=== PATIENT | female | born 1950 | race Caucasian/White ===

== ENCOUNTER 2017-05-20 12:29 | Emergency (ER) | payer OTHER ==
[~2017-05-20] VITALS: Ht 167.6 cm; Wt 90.5 kg
[~2017-05-20 12:29] MED LIST: ALBU1AER INH; CLIN1CAP5 PO; DIFL150T PO; LEVA500T PO; LISI10TA PO; LOTR15T TOP; MEDR4PAK3 PO; TRAM50TA; ZITHTAB PO
[2017-05-20 12:51] VITALS: BP 189/96; PULSE 98; RESP 16; TEMP 98.6; O2SAT 98
[2017-05-20 12:56] VITALS: RESP 16; O2SAT 98
[2017-05-20] MEDS ORDERED: LISI20TA PO (12:59)
[2017-05-20] MEDS ORDERED: TRAM50TA PO (12:59)
[2017-05-20] MEDS ORDERED: SODIUM CHLORID 0.9% 500 ML INJ 500 ML IV ONE (13:00)
[2017-05-20] MEDS ORDERED: ASPIRIN 81 MG CHEW TAB PO ONE (13:00)
[2017-05-20] MEDS ORDERED: SODIUM CHLORIDE 0.9% FLUSH 10 ML FLUSH IVF PRN (13:00)
[2017-05-20] MEDS: NITROGLYCERIN 0.4 MG SL 25 TABS/BTL SL SCH ×3 (13:05→13:10)
[2017-05-20 13:10] LABS: BASOPHIL # 0.1 TH/MM3 (0-0.2); BASOPHIL % 0.9 % (0.0-2.0); EOSINOPHIL # 0.3 TH/MM3 (0-0.4); EOSINOPHIL % 3.4 % (0.0-4.0); HEMATOCRIT 39.2 % (35.0-46.0); HEMO FLAGS DIFF FINAL; LYMPH % 30.6 % (9.0-44.0); LYMPHOCYTE # 2.6 TH/MM3 (1.0-4.8); MEAN CELL VOLUME 84.4 FL (80.0-100.0); MEAN CORPUSCULAR HEMOGLOBIN 29.1 PG (27.0-34.0); MEAN CORPUSCULAR HGB CONC 34.4 % (32.0-36.0); MONO % 8.4 % (0.0-8.0); NEUT % 56.7 % (16.0-70.0); PLATELET COUNT 232 TH/MM3 (150-450); RED BLOOD COUNT 4.65 MIL/MM3 (4.00-5.30); RED CELL DISTRIBUTION WIDTH 13.5 % (11.6-17.2); WHITE BLOOD COUNT 8.7 TH/MM3 (4.0-11.0)
[2017-05-20 13:11] VITALS: BP 109/62; PULSE 88; RESP 16; O2SAT 97
[2017-05-20 13:18] LABS: CHLORIDE 105 MEQ/L (98-107); POTASSIUM 3.6 MEQ/L (3.5-5.1); SODIUM (NA) 140 MEQ/L (136-145)
[2017-05-20 13:22] LABS: ANION GAP 8 MEQ/L (5-15); BICARBONATE 27.4 MEQ/L (21.0-32.0)
[2017-05-20 13:23] LABS: BLOOD UREA NITROGEN 12 MG/DL (7-18)
[2017-05-20 13:25] LABS: ALT (GPT) 29 U/L (10-53); AST (GOT) 19 U/L (15-37); GLOMERULAR FILTRATION RATE 74 ML/MIN (>89)
[2017-05-20 13:27] LABS: TOTAL BILIRUBIN ADULT 0.3 MG/DL (0.2-1.0)
[2017-05-20 13:28] LABS: ALKALINE PHOSPHATASE 85 U/L (45-117)
[2017-05-20 13:30] LABS: CREATINE KINASE 72 U/L (26-192)
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
[2017-05-20 13:39] LABS: APTT (PATIENT) 23.6 SEC (24.3-30.1); INTERNATIONAL NORMALIZED RATIO 0.9 RATIO; PROTHROMBIN TIME - PATIENT 9.7 SEC (9.8-11.6)
--- NOTE | 2017-05-20 13:57 | RADRPT ---
EXAM DATE/TIME: 05/20/2017 13:16 [facility] COMPARISON: CHEST SINGLE AP, November 09, 2015, 6:13. INDICATIONS : Chest pain, short of breath. MEDICAL HISTORY : None. SURGICAL HISTORY : None. ENCOUNTER: Initial ACUITY: 1 day PAIN SCORE: 1/10 LOCATION: Bilateral chest FINDINGS: A single view of the chest demonstrates the lungs to be symmetrically aerated without evidence of mas s, infiltrate or effusion. The cardiomediastinal contours are unremarkable. Osseous structures are intact. CONCLUSION: No acute disease. No significant change has occurred. Vel Howard MD on May 20, 2017 at 13:55 Board Certified Radiologist. This report was verified electronically.
--- NOTE | 2017-05-20 14:13 | RADRPT ---
EXAM DATE/TIME: 05/20/2017 13:41 [facility] COMPARISON: No previous studies available for comparison. INDICATIONS : Bilateral leg swelling. MEDICAL HISTORY : Hypertension. Carcinoma, squamous cell. Chest pain. Chronic back pain. Depression. Anxiety. Anticoa gulant therapy, Aspirin. SURGICAL HISTORY : section. Bilateral YV-Plasty - bilateral implant. ENCOUNTER: Initial ACUITY: 1 day PAIN SCORE: 3/10 LOCATION: Bilateral leg. TECHNIQUE: Venous ultrasound of the left and right leg was performed from the inguinal ligament to the proximal calf. Real-time, color Doppler and spectral tracing, compression and augmentation techniques were us ed. FINDINGS: RIGHT LEG: There is normal compressibility of the deep venous system from the inguinal region to the proximal ca lf. No echogenic clot is seen in the lumen of the common femoral, femoral, popliteal, and posterior tibial veins. There is a normal response of the venous system to proximal and distal augmentation an d respiration. LEFT LEG: There is normal compressibility of the deep venous system from the inguinal region to the proximal ca lf. No echogenic clot is seen in the lumen of the common femoral, femoral, popliteal, and posterior tibial veins. There is a normal response of the venous system to proximal and distal augmentation an d respiration. CONCLUSION: Negative for deep venous thrombosis. Shiv Mata MD FACR on May 20, 2017 at 14:10 Board Certified Radiologist. This report was verified electronically.
[2017-05-20] MEDS ORDERED: IOHEXOL 350 MG/ML 10 ML VIAL (for RAD DIAG) IV ONE (14:47)
--- NOTE | 2017-05-20 14:52 | RADRPT ---
EXAM DATE/TIME: 05/20/2017 14:29 [facility] COMPARISON: No previous studies available for comparison. INDICATIONS : Chest pain. IV CONTRAST: 75 cc Omnipaque 350 (iohexol) IV RADIATION DOSE: 13.59 CTDIvol (mGy) MEDICAL HISTORY : Hypertension. SURGICAL HISTORY : section. ENCOUNTER: Initial ACUITY: 1 day PAIN SCALE: 2/10 LOCATION: chest TECHNIQUE: Volumetric scanning of the chest was performed using a pulmonary embolism protocol MIP images were re constructed. Using automated exposure control and adjustment of the mA and/or kV according to patien t size, radiation dose was kept as low as reasonably achievable to obtain optimal diagnostic quality images. DICOM format image data is available electronically for review and comparison. FINDINGS: PULMONARY ARTERIES: No filling defects are seen in the pulmonary arteries through the segmental level. LUNGS: There is no consolidation or pneumothorax . No concerning pulmonary nodule is visualized. PLEURAE: There is no pleural thickening or pleural effusion. MEDIASTINUM: There is good visualization of the great vessels of the middle mediastinum. No evidence of mediastin al or hilar adenopathy/mass. Mild aneurysmal the location of the ascending thoracic aorta with an AP diameter of 4.4 cm.MUSCULOSKELETAL: Within normal limits for patient age. MISCELLANEOUS: The visualized upper abdominal organs demonstrate no acute abnormality. CONCLUSION: 1. No evidence of pulmonary emboli 2. No acute pulmonary infiltrates 3. Mild aneurysmal dilatation ascending thoracic aorta at 4.4 cm. Vel Howard MD on May 20, 2017 at 14:48 Board Certified Radiologist. This report was verified electronically.
[2017-05-20 15:19] VITALS: BP 140/76
--- NOTE | 2017-05-21 18:23 | EKG ---
Date Performed: 05/20/2017 Time Performed: 12:33:15 PTAGE: 67 years EKG: Sinus rhythm POSSIBLE LEFT ATRIAL ENLARGEMENT BORDERLINE ECG PREVIOUS TRACING : 11/09/2015 05.53 Compared to prior tracing no significant change DOCTOR: Janny Prater Interpretating Date/Time 05/21/2017 18:22:08
== END 2017-05-20 15:20 | disposition left against medical advice (07) ==
LOC: PHED 12:29
DX: R07.9 Chest pain, unspecified (principal); I71.2 Thoracic aortic aneurysm, without rupture; R06.02 Shortness of breath; R11.0 Nausea; R94.31 Abnormal electrocardiogram [ECG] [EKG]; I10 Essential (primary) hypertension; Z79.82 Long term (current) use of aspirin; Z86.59 Personal history of other mental and behavioral disorders; Z86.79 Personal history of other diseases of the circulatory system; Z87.39 Personal history of other diseases of the musculoskeletal system and connective tissue; Z87.891 Personal history of nicotine dependence
CPT/HCPCS: 71010; 71275; 80053; 82550; 83690; 83735; 83880; 84484; 85025; 85379; 85610; 85730; 93005; 93970; 96360; 99285; J7040; Q9967

== ENCOUNTER 2018-07-06 12:15 | Observation (INO) ==
[2018-07-06] MEDS ORDERED: Morphine Inj 4 MG/ML Vial IV.PUSH ONE (13:10)
[2018-07-06 13:11] LABS: Baso % (Auto) 0.7 % (0.0-2.0); Eos # (Auto) 0.1 th/mm3 (0.0-0.4); Eos % (Auto) 1.5 % (0.0-4.0); Hematocrit 38.9 % (35.0-46.0); Hemoglobin 13.1 gm/dL (11.6-15.3); Lymph # (Auto) 1.7 th/mm3 (1.0-4.8); Lymph % (Auto) 25.2 % (9.0-44.0); Mean Corpuscular HGB Conc 33.7 % (32.0-36.0); Mean Corpuscular Hemoglobin 28.4 pg (27.0-34.0); Mean Corpuscular Volume 84.3 fL (80.0-100.0); Mean Platelet Volume 8.3 fL (7.0-11.0); Mono # (Auto) 0.5 th/mm3 (0.0-0.9); Mono % (Auto) 8.1 % (0.0-8.0); Neut # (Auto) 4.5 th/mm3 (1.8-7.7); Neut % (Auto) 64.5 % (16.0-70.0); Platelet Count 231 th/mm3 (150-450); Red Blood Count 4.62 mil/mm3 (4.00-5.30); Red Cell Distribution Width 13.9 % (11.6-17.2); White Blood Count 6.8 th/mm3 (4.0-11.0)
[2018-07-06 13:18] LABS: Chloride 104 meq/L (98-107); Potassium 3.7 meq/L (3.5-5.1); Sodium 141 meq/L (136-145)
--- NOTE | 2018-07-06 13:19 | ED ---
HPI General Chief Complaint: Chest Pain Stated Complaint: Chest pain Time Seen by Provider: 07/06/18 12:40 Source: patient and old records reviewed Mode of arrival: ambulatory Limitations: no limitations History of Present Illness MD complaint: chest pain Complete Quality Measures for STEMI Alert Patients STEMI Alert: No Onset (ago): day(s) (3-7) Duration: constant and progressively worsening (worse today) Pain location: substernal Quality: heaviness Pain radiation: none Relieving factors: nothing Exacerbating factors: nothing Context: other (This is this patient's third visit here this week. She is extremely concerned about her blood pressure.) Associated symptoms: dyspnea and other (dizziness) Treatments prior to arrival chest pain: none Related Data Home Medications Medication Instructions Recorded Confirmed lisinopril 40 mg PO DAILY 06/30/18 07/06/18 tramadol 50 mg PO BID 06/30/18 07/06/18 diltiazem HCl 120 mg PO Q12H 07/06/18 07/06/18 Previous Rx's Medication Instructions Recorded clonidine HCl 0.1 mg PO ONCE PRN #10 tab 06/30/18 Allergies Allergy/AdvReac Type Severity Reaction Status Date / Time penicillin G Allergy Severe ANAPHALAXIS Verified 07/06/18 12:48 amoxicillin Allergy Unknown CRAMPMING Verified 07/06/18 12:48 nitrofurantoin Allergy Unknown HIVES Verified 07/06/18 12:48 Sulfa (Sulfonamide AdvReac Unknown UNK Verified 07/06/18 12:48 Antibiotics) Review of Systems ROS: all other systems reviewed are negative [facility] Medical History Medical History Hypertension (Acute) Surgical History Surgical History Hx of bladder repair surgery (Acute) Hx of section (Acute) Social History Social History Substance History: No History of Abuse Second Hand Smoke Exposure: No Smoking Status: Former smoker Tobacco Type: Cigarettes How Often Do You Have a Drink Containing Alcohol: Never Recent Travel in [facility] within the Last 8 Weeks: No Recent Out of Country Travel within the Last 8 Weeks: No Immunization History Tetanus Immunization: >5 Years Hx Influenza Vaccine This Season: No Exam Const General: cooperative, healthy appearing and comfortable Orientation: alert, awake and oriented x3 HENMT Head: normal to inspection, normocephalic and atraumatic Eyes General: appearance normal, both eyes and all related structures Conjunctivae: conjunctivae normal Sclera: sclerae normal EOM: EOM intact bilaterally Neck Neck: normal visual inspection and full ROM Chest Chest: normal inspection of the chest Resp Effort & Inspection: normal respiratory effort and able to speak in complete sentences Auscultation: clear to auscultation bilaterally Cardio Rate: regular rate Rhythm: regular rhythm Heart Sounds: S1 normal and S2 normal GI Inspection: normal to inspection Palpation: soft Back/Spine/Pelvis Cervical Spine: cervical ROM normal Thoracic/Lumbar Spine: thoraco-lumbar ROM normal Skin General: no rashes or lesions noted, turgor normal and dry skin Neuro General: alert, awake, oriented x3, moves all extremities and CN's II-XI intact bilaterally Extrem General: normal to inspection, full ROM and no pedal edema Psych Appearance: grossly normal Mental Status: mental status grossly normal Speech and Movement: speech and movement normal Mood: congruent mood Affect: normal affect Attitude: cooperative Thought Process: normal Thought Content: normal Judgment: judgment good Course Hospital Course: Her blood pressure did come down with Nitropaste Consultations Consultation #1: Dr. Casanova will admit to the chest pain center Time: 15:26 Initial Documented Vital Signs Temperature 98.6 F 07/06/18 12:51 Pulse Rate 71 07/06/18 12:51 Respiratory Rate 16 07/06/18 12:51 Blood Pressure 226/96 H 07/06/18 12:51 Pulse Oximetry 95 07/06/18 12:51 Last Documented Vital Signs Temperature 98.6 F 07/06/18 12:51 Pulse Rate 65 07/06/18 14:36 Respiratory Rate 16 07/06/18 14:36 Blood Pressure 195/99 H 07/06/18 14:36 Pulse Oximetry 97 07/06/18 14:36 Critical Care Time Critical Care Time: Yes Total Critical Care Time: 30 Attestation: Time to perform other separately billable procedures was not included in the critical care time. My time did not include minutes spent treating any other patients simultaneously or on activities that did not directly contribute to the patient's treatment. The services I provided to this patient were to treat and/or prevent clinically significant deterioration due to chest pain, rule out ACS I provided critical care services requiring my management, as noted below: Chart data review, documentation time, medication orders and management, vital sign assessments/reviewing monitor data, ordering and reviewing lab tests, ordering and interpreting/reviewing x-rays and diagnostic studies, care of the patient and discussion of the patient with the admitting physicians Medical Decision Making MDM Narrative Medical decision making narrative: This patient presents with the chief complaint of chest pain. She states that it has been ongoing for at least the past 3 days. She has been seen here on 06/30 and 07/02 with a complaint of hypertension. There was no mention of chest pain on those previous visits. She has been given aspirin, Nitropaste and morphine in the emergency department. Medical Screen Exam Complete: Yes Emergency Medical Condition: Yes Differential Diagnosis Differential Diagnosis: Differential diagnosis of chest pain includes but is not limited to musculoskeletal pain, pulmonary embolism, acute coronary syndrome , pneumonia, pleurisy Medical Records Medical records reviewed: Yes I reviewed the patient's medical records. Lab Data Lab results reviewed: Yes I reviewed the patient's lab results. Result diagrams: 07/06/18 13:00 07/06/18 13:00 Lab Results 07/06/18 07/06/18 Range/Units 13:00 13:00 CBC w Diff Auto diff final WBC 6.8 (4.0-11.0) th/mm3 RBC 4.62 (4.00-5.30) mil/mm3 Hgb 13.1 (11.6-15.3) gm/dL Hct 38.9 (35.0-46.0) % MCV 84.3 (80.0-100.0) fL MCH 28.4 (27.0-34.0) pg MCHC 33.7 (32.0-36.0) % RDW 13.9 (11.6-17.2) % Plt Count 231 (150-450) th/mm3 MPV 8.3 (7.0-11.0) fL Neut % (Auto) 64.5 (16.0-70.0) % Lymph % (Auto) 25.2 (9.0-44.0) % [place]ama % (Auto) 8.1 H (0.0-8.0) % Eos % (Auto) 1.5 (0.0-4.0) % Baso % (Auto) 0.7 (0.0-2.0) % Neut # (Auto) 4.5 (1.8-7.7) th/mm3 Lymph # (Auto) 1.7 (1.0-4.8) th/mm3 [place] # (Auto) 0.5 (0.0-0.9) th/mm3 Eos # (Auto) 0.1 (0.0-0.4) th/mm3 Baso # (Auto) 0.0 (0.0-0.2) th/mm3 WBC Differential . Differential Comment . Sodium 141 (136-145) meq/L Potassium 3.7 (3.5-5.1) meq/L Chloride 104 (98-107) meq/L Carbon Dioxide 27.4 (21.0-32.0) meq/L Anion Gap 10 (5-15) meq/L BUN 9 (7-18) mg/dL Creatinine 0.70 (0.50-1.00) mg/dL Estimated GFR 83 L (>89) mL/min Random Glucose 98 (74-106) mg/dL Calcium 8.8 (8.5-10.1) mg/dL Troponin I Less than 0.02 L (0.02-0.05) ng/mL Imaging Data Radiologist's impression: Chest X-Ray 07/06/18 12:43 CONCLUSION: 1. No acute abnormality or significant interval change. ECG Data EKG Prior to Arrival: No Attestation: I personally reviewed and interpreted this ECG as follows: (EKG shows a sinus rhythm with 69. She has inverted T waves in her inferior leads and in V3. No acute ST segment elevation or depression.) Prior ECG tracings: available for review (unchanged) Discharge Plan Discharge Disposition Patient Disposition: 30 Still Patient Discharge Details Diagnosis: Chest pain Physicians Team ED Provider: Zakiya Rodriguez Primary Care Provider: Federico Vargas Rxs /Orders / Referrals /Forms Prescriptions: No Action diltiazem HCl 120 mg Capsule,Extended Release 12 Hr 120 mg PO Q12H RF: 0 lisinopril 40 mg Tablet 40 mg PO DAILY RF: 0 tramadol 50 mg Tablet 50 mg PO BID RF: 0 clonidine HCl 0.1 mg tablet 0.1 mg PO ONCE PRN (Reason: hypertensive emergency) Qty: 10 RF: 0 Discharge Instructions Patient Printed Instructions: Chest Pain (ED) Discharge Interventions Interventions: Vital Signs Last Done: 07/06/18 14:36 Status ED Status: Pending Admission
[2018-07-06 13:22] LABS: Anion Gap 10 meq/L (5-15); Blood Urea Nitrogen 9 mg/dL (7-18); Calcium 8.8 mg/dL (8.5-10.1); Carbon Dioxide 27.4 meq/L (21.0-32.0); Glucose,Random 98 mg/dL (74-106)
[2018-07-06 13:26] LABS: Glomerular Filtration Rate 83 mL/min (>89)
--- NOTE | 2018-07-06 14:03 | XR ---
EXAM DATE: 07/06/2018 1:09 PM EDT AGE/SEX: 68 years / Female INDICATIONS: Short of breath, chest pessure. CLINICAL DATA: This is the patient's initial encounter. Patient reports that signs and symptoms have been present for 1 day and indicates a pain score of 4/10. MEDICAL/SURGICAL HISTORY: Hypertension. section. Bladder surgery. COMPARISON: [facility], CHEST 2V PA&LAT, 07/02/2018. . FINDINGS: No new focal pleural or parenchymal opacities. The cardiomediastinal contours are unremarkable. Osse ous structures are intact. CONCLUSION: 1. No acute abnormality or significant interval change. Electronically signed by: Frederick Parada MD 07/06/2018 2:01 PM EDT
--- NOTE | 2018-07-06 16:10 | P.HP ---
History of Present Illness Primary Care Physician: Federico Vargas Chief Complaint: Chest pain and elevated BP History of Present Illness: This is a 68-year-old female patient with a known medical history of hypertension and chronic back pain he presented to the ED with complaints of chest pain. Patient states that over the past 3 days she has been experiencing midsternal chest pain that is characterized as "someone sitting on his chest", squeezing and dull in nature. She states that the pain is intermittent coming and going. She states that the pain is worse when her blood pressure readings are high, she states that the pain has improved with rest. She does take tramadol at home which has improved the pain slightly. She denies any associated nausea, vomiting or diaphoresis with the pain. She does admit to associated shortness of breath intermittently. Patient does admit to noncompliance with her prescribed medications for blood pressure, she states that her PCP had recently prescribed her hydralazine in addition to her lisinopril for which she has been noncompliant. She states that she does not feel she wants to be on medication and does not want to accept this fact that she needs medication to live. She does admit to history of back pain, she states she reinjured her back a couple weeks ago. She does follow with [facility], does admit to associated left arm numbness and some left leg numbness that intermittently comes and goes. She does state that she had a episode of chest pain 2 years ago, she relates this to an anxiety attack. At that time patient did undergo a cardiac catheterization which was reportedly negative. She does not follow with a credit risk analyst. She does admit to taking her lisinopril this morning. She has not started the prescribed Cardizem nor hydralazine. She does admit to smoking half pack per day cigarettes for many years. Father had an [place] at the age of 4343 years old. - Diagnosis (1) Chest pain (2) Hypertension Review of Systems All other systems reviewed negative except as stated in HPI [facility] - History History Provided By: Patient - Medical History Medical History: Medical History (Last Reviewed 07/06/18 @ 13:13 by Zakiya Rodriguez) Hypertension (Acute) - Surgical History Surgical History: Surgical History (Last Updated 07/06/18 @ 12:52 by Sasha Mitchell RN) Hx of bladder repair surgery (Acute) Hx of section (Acute) - Family History Family History: Family History (Last Updated 07/06/18 @ 16:24 by Madelin Leyva) Father Cardiovascular disease - Tobacco History Second Hand Smoke Exposure: No Tobacco Use In Past 30 Days: Yes Smoking Status: Current every day smoker Tobacco Type: Cigarettes Packs Per Day: 0.5 - Alcohol History How Often Do You Have a Drink Containing Alcohol: Never - Substance Use History Substance History: No History of Abuse - Travel History Recent Travel in the [place] Within the Last 8 Weeks: No Recent Travel Out of the Country Within the Last 8 Weeks: No - Immunization History Tetanus Immunization: >5 Years Hx Influenza Vaccine This Season: No Medications and Allergies Active Medications: Active Medications Sodium Chloride (Ns Flush) 2 ml IV.FLUSH UNSCH PRN PRN Reason: FLUSH AFTER USING IV ACCESS Allergies Allergy/AdvReac Type Severity Reaction Status Date / Time penicillin G Allergy Severe ANAPHALAXIS Verified 07/06/18 12:48 amoxicillin Allergy Unknown CRAMPMING Verified 07/06/18 12:48 nitrofurantoin Allergy Unknown HIVES Verified 07/06/18 12:48 Sulfa (Sulfonamide AdvReac Unknown UNK Verified 07/06/18 12:48 Antibiotics) Home Medications Medication Instructions Recorded Confirmed Type lisinopril 40 mg PO DAILY 06/30/18 07/06/18 History tramadol 50 mg PO BID 06/30/18 07/06/18 History diltiazem HCl 120 mg PO Q12H 07/06/18 07/06/18 History Exam Vital signs: Vital Signs 07/06/18 12:51 07/06/18 14:01 07/06/18 14:36 Temperature 98.6 F Pulse Rate 71 61 65 Respiratory Rate 16 16 16 Blood Pressure 226/96 H 201/93 H 195/99 H Pulse Oximetry 95 96 97 07/06/18 16:08 Temperature Pulse Rate 62 Respiratory Rate 16 Blood Pressure 178/82 H Pulse Oximetry 99 Intake & Output 07/05/18 07/06/18 07/06/18 18:59 06:59 18:59 Weight 86.8 kg Narrative: GENERAL: Well-developed, well-nourished patient in [facility]. SKIN: Warm and dry. No rash. HEAD: Normocephalic. Atraumatic. EYES: Pupils equal and round. No scleral icterus. No injection or drainage. ENT: No nasal bleeding or discharge. Mucous membranes pink and moist. NECK: Supple. Trachea midline. CARDIOVASCULAR: Regular rate and rhythm. S1, S2 noted. No murmur appreciated. No chest pain to palpation. RESPIRATORY: No accessory muscle use. Clear to auscultation. Breath sounds equal bilaterally. GASTROINTESTINAL: Abdomen soft, non-tender, nondistended. Normoactive bowel sounds x4. MUSCULOSKELETAL: No obvious deformities. Extremities without clubbing, cyanosis , or edema. NEUROLOGICAL: Awake and alert. No obvious cranial nerve deficits. Motor grossly within normal limits. 5/5 muscle strength in bilateral upper and lower extremities. Normal speech. PSYCHIATRIC: Appropriate mood and affect; insight and judgment normal. Results - Labs CBC & Chem 7: 07/06/18 13:00 07/06/18 13:00 Labs: Laboratory Results - last 24 hr 07/06/18 07/06/18 13:00 13:00 CBC w Diff Auto diff final WBC 6.8 RBC 4.62 Hgb 13.1 Hct 38.9 MCV 84.3 MCH 28.4 MCHC 33.7 RDW 13.9 Plt Count 231 MPV 8.3 Neut % (Auto) 64.5 Lymph % (Auto) 25.2 [place] % (Auto) 8.1 H Eos % (Auto) 1.5 Baso % (Auto) 0.7 Neut # (Auto) 4.5 Lymph # (Auto) 1.7 [place] # (Auto) 0.5 Eos # (Auto) 0.1 Baso # (Auto) 0.0 WBC Differential . Differential Comment . Sodium 141 Potassium 3.7 Chloride 104 Carbon Dioxide 27.4 Anion Gap 10 BUN 9 Creatinine 0.70 Estimated GFR 83 L Random Glucose 98 Calcium 8.8 Troponin I Less than 0.02 L - Imaging Impressions Chest X-Ray 07/06/18 12:43 CONCLUSION: 1. No acute abnormality or significant interval change. Caprini VTE Risk Assessment Caprini VTE Risk Assessment: Moderate/High Risk (score >= 2) Caprini Risk Assessment Model: Point Value = 1 Point Value = 2 Point Value = 3 Point Value = 5 Age 41-60 Minor surgery BMI > 25 kg/m2 Swollen legs Varicose veins or History of unexplained or recurrent spontaneous Oral contraceptives or hormone replacement Sepsis (< 1 month) Serious lung disease, including pneumonia (< 1 month) Abnormal pulmonary function Acute myocardial infarction Congestive heart failure (< 1 month) History of inflammatory bowel disease Medical patient at bed rest Age 61-74 Arthroscopic surgery Major open surgery (> 45 min) Laparoscopic surgery (> 45 min) Malignancy Confined to bed (> 72 hours) Immobilizing plaster cast Central venous access Age >= 75 History of VTE Family history of VTE Factor V Leiden Prothrombin [id number] Lupus anticoagulant Anticardiolipin antibodies Elevated serum homocysteine Heparin-induced thrombocytopenia Other congenital or acquired thrombophilia Stroke (< 1 month) Elective arthroplasty Hip, pelvis, or leg fracture Acute spinal cord injury (< 1 month) Prophylaxis Regimen: Total Risk Factor Score Risk Level Prophylaxis Regimen 0-1 Low Early ambulation 2 Moderate Order ONE of the following: *Sequential Compression Device (SCD) *Heparin 5000 units SQ BID 3-4 Higher Order ONE of the following medications: *Heparin 5000 units SQ TID *Enoxaparin/Lovenox 40 mg SQ daily (WT < 150 kg, CrCl > 30 mL/min) *Enoxaparin/Lovenox 30 mg SQ daily (WT < 150 kg, CrCl > 10-29 mL/min) *Enoxaparin/Lovenox 30 mg SQ BID (WT < 150 kg, CrCl > 30 mL/min) AND/OR *Sequential Compression Device (SCD) 5 or more Highest Order ONE of the following medications: *Heparin 5000 units SQ TID (Preferred with Epidurals) *Enoxaparin/Lovenox 40 mg SQ daily (WT < 150 kg, CrCl > 30 mL/min) *Enoxaparin/Lovenox 30 mg SQ daily (WT < 150 kg, CrCl > 10-29 mL/min) *Enoxaparin/Lovenox 30 mg SQ BID (WT < 150 kg, CrCl > 30 mL/min) AND *Sequential Compression Device (SCD) Assessment and Plan - Assessment (1) Chest pain Code(s): R07.9 - Chest pain, unspecified Status: Acute (2) Hypertension Code(s): I10 - Essential (primary) hypertension Status: Acute - Plan This is a 68-year-old patient with: Chest pain -Patient has been admitted to the observation unit for chest pain. -Serial EKGs and serial troponins have been ordered for ruling out ACS purposes. Initial troponin flat. Will continue to monitor trend. -EKG reviewed, no ST changes to indicate any ischemia. There is some T-wave inversion. Controlled heart rate. Chest pain has resolved. -Patient was given aspirin, nitro and morphine in the ED. Patient will be continued on cardiac telemetry, monitor for any arrhythmias. -CBC and BMP reviewed and essentially unremarkable. Chest x-ray with no acute abnormality. -If ACS ruled out with serial EKGs and serial troponins, patient will undergo a cardiac myocardial perfusion scan in the a.m. to further rule out any ischemia. -Patient does have a significant family history with her father having an NJ at the age of 4343 years old, tobacco abuse and noncompliance. Hypertension, chronic uncontrolled -Blood pressure in the 220s systolic on presentation. Has improved slightly although still significantly elevated. -Will continue home medications including lisinopril. Will add hydrochlorothiazide. -Clonidine as needed. -Continue to monitor blood pressure trends. Chronic back pain: We will continue home medications. DVT prophylaxis: SCDs. Ambulation. (1) Chest pain Qualifiers: Chest pain type: unspecified Qualified Code(s): R07.9 - Chest pain, unspecified
[2018-07-06] MEDS ORDERED: Acetaminophen 500 MG Tablet PO PRN (16:28)
[2018-07-06] MEDS: Heparin - SQ 10,000 UNITS/ML Vial SQ SCH (17:21)
[2018-07-06] MEDS: dilTIAZem CD 240 MG Capsule PO SCH (17:29)
[2018-07-06 17:55] LABS: Creatine Kinase 44 U/L (26-192)
[2018-07-06 20:49] LABS: Troponin I 0.02 ng/mL (0.02-0.05)
--- NOTE | 2018-07-06 23:30 | ECG ---
Date Performed: 07/06/2018 Time Performed: 19:59:04 PTAGE: 68 years EKG: JUNCTIONAL BRADYCARDIA NONSPECIFIC T-WAVE ABNORMALITY ABNORMAL RHYTHM ECG PREVIOUS TRACING : 07/06/2018 17.09 Since the previous tracing, no significant change noted DOCTOR: Andrea Chappell Interpretating Date/Time 07/06/2018 23:30:01
--- NOTE | 2018-07-06 23:37 | ECG ---
Date Performed: 07/06/2018 Time Performed: 17:09:06 PTAGE: 68 years EKG: JUNCTIONAL RHYTHM NONSPECIFIC T-WAVE ABNORMALITY ABNORMAL RHYTHM ECG PREVIOUS TRACING : 07/06/2018 12.33 Since the previous tracing, no significant change noted DOCTOR: Andrea Chappell Interpretating Date/Time 07/06/2018 23:36:11
--- NOTE | 2018-07-06 23:48 | ECG ---
Date Performed: 07/06/2018 Time Performed: 12:33:04 PTAGE: 68 years EKG: ECTOPIC ATRIAL RHYTHM NONSPECIFIC T-WAVE ABNORMALITY ABNORMAL RHYTHM ECG INTERPRETATION BAS ED ON A DEFAULT AGE OF 40 YEARS PREVIOUS TRACING : 07/02/2018 18.58 Since the previous tracing, no significant change not ed DOCTOR: Andrea Chappell Interpretating Date/Time 07/06/2018 23:46:21
[2018-07-07] MEDS: Heparin - SQ 10,000 UNITS/ML Vial SQ SCH (06:03)
[2018-07-07] MEDS: dilTIAZem CD 240 MG Capsule PO SCH (08:29)
[2018-07-07 08:33] VITALS: TEMP 97.2
[2018-07-07] MEDS ORDERED: hydroCHLOROthiazide 25 MG Tablet PO SCH (09:00)
[2018-07-07] MEDS ORDERED: Lisinopril 20 MG Tablet PO SCH (09:00)
[2018-07-07] MEDS ORDERED: Regadenoson Inj 0.4 MG/5 ML Syringe IV.PUSH ONE (10:45)
[2018-07-07 11:30] VITALS: O2SAT 97
--- NOTE | 2018-07-07 11:45 | NM ---
EXAM DATE: 07/07/2018 11:37 AM EDT AGE/SEX: 68 years / Female INDICATIONS:Angina. . Midsternal chest pain. CLINICAL DATA: This is the patient's initial encounter. Patient reports that signs and symptoms have been present for 3 days and indicates a pain score of 6/10. MEDICAL/SURGICAL HISTORY: Hypertension. section. Bladder repair. COMPARISON: No prior exams available for comparison. DOSE: 8.5 mCi Tc 99m Myoview at rest 25.4 mCi [id number] at stress 0.4 mg Lexiscan STRESS SYMPTOMS: Dyspnea and nausea. EJECTION FRACTION: 59 % TECHNIQUE: The patient underwent pharmacologic stress with infusion of prescribed dose. Continuous ECG tracing was monitored during stress. Gated SPECT imaging was performed after stress and conventi onal SPECT imaging was performed at rest. The examination was performed on a SPECT/CT scanner, both attenuation and non-corrected datasets were reviewed. FINDINGS: Distribution: The maximum perfused segment at stress is in the anterolateral wall. Perfusion Study: The pattern of perfusion at stress is within normal limits. Gated Study: There are intact wall motion and wall thickening without hypokinetic or dyskinetic segm ents. The ejection fraction is calculated at 59%. RISK CATEGORY: Low (<1% Annual Motality Rate) CONCLUSION: 1. Left ventricle perfusion is within normal limits. No fixed or reversible perfusion defect is iden tified. 2. Normal left ventricle wall motion and ejection fraction. Electronically signed by: Lee Conde MD 07/07/2018 11:44 AM EDT
--- NOTE | 2018-07-07 11:56 | P.PN ---
Subjective Interval history: Follow-up chest pain, uncontrolled hypertension and noncompliance. Patient seen and examined, sitting on side of bed comfortably no apparent distress. Patient underwent myocardial perfusion scan today, report reviewed showing adequate EF with no ischemia. Report reviewed with patient. Discussed at length regarding patient's lifestyle behaviors, encourage patient to avoid high salty foods as well as increase activity as well as weight loss. Patient is motivated to change lifestyle. Prescription offered for hydrochlorothiazide, encouraged to continue home lisinopril. All questions answered. Patient is advised to return to the ED if patient's symptoms persist or worsen. Stable at this time and agreeable to plan. Physical Exam Vital signs: Vital Signs 07/06/18 12:51 07/06/18 14:01 07/06/18 14:36 Temperature 98.6 F Pulse Rate 71 61 65 Respiratory Rate 16 16 16 Blood Pressure 226/96 H 201/93 H 195/99 H Pulse Oximetry 95 96 97 07/06/18 16:08 07/06/18 17:39 07/06/18 19:39 Temperature 97.0 F L Pulse Rate 62 63 Respiratory Rate 16 20 Blood Pressure 178/82 H 175/83 H Pulse Oximetry 99 95 95 07/06/18 20:00 07/07/18 00:00 07/07/18 04:00 Temperature 96.9 F L 97 F L 96.7 F L Pulse Rate 57 L 57 L 61 Respiratory Rate 18 18 18 Blood Pressure 128/61 142/75 H 155/77 H Pulse Oximetry 95 96 95 07/07/18 08:00 07/07/18 08:59 Temperature 97.2 F L Pulse Rate 52 L Respiratory Rate 19 18 Blood Pressure 150/70 H Pulse Oximetry 97 Intake & Output 07/06/18 07/07/18 07/07/18 18:59 06:59 18:59 Intake Total 240 / 240 480 / 480 0 / 0 Output Total 500 / 500 Balance 240 / 240 480 / 480 -500 / -500 Weight 86.8 kg 85.2 kg Intake: Oral 240 / 240 480 / 480 0 / 0 Output: Urine 500 / 500 Other: # Voids 3 Date of Last Bowel Movement 07/06/18 07/06/18 Narrative: GENERAL: Well-developed, well-nourished patient in NAD. SKIN: Warm and dry. No rash. HEAD: Normocephalic. Atraumatic. EYES: Pupils equal and round. No scleral icterus. No injection or drainage. ENT: No nasal bleeding or discharge. Mucous membranes pink and moist. NECK: Supple. Trachea midline. CARDIOVASCULAR: Regular rate and rhythm. S1, S2 noted. No murmur appreciated. RESPIRATORY: No accessory muscle use. Clear to auscultation. Breath sounds equal bilaterally. GASTROINTESTINAL: Abdomen soft, non-tender, nondistended. Normoactive bowel sounds x4. MUSCULOSKELETAL: No obvious deformities. Extremities without clubbing, cyanosis , or edema. NEUROLOGICAL: Awake and alert. No obvious cranial nerve deficits. Motor grossly within normal limits. 5/5 muscle strength in bilateral upper and lower extremities. Normal speech. PSYCHIATRIC: Appropriate mood and affect; insight and judgment normal. Results - Labs CBC & Chem 7: 07/06/18 13:00 07/06/18 13:00 Laboratory Results - last 24 hr 07/06/18 07/06/18 07/06/18 13:00 13:00 17:20 CBC w Diff Auto diff final WBC 6.8 RBC 4.62 Hgb 13.1 Hct 38.9 MCV 84.3 MCH 28.4 MCHC 33.7 RDW 13.9 Plt Count 231 MPV 8.3 Neut % (Auto) 64.5 Lymph % (Auto) 25.2 Anson % (Auto) 8.1 H Eos % (Auto) 1.5 Baso % (Auto) 0.7 Neut # (Auto) 4.5 Lymph # (Auto) 1.7 Anson # (Auto) 0.5 Eos # (Auto) 0.1 Baso # (Auto) 0.0 WBC Differential . Differential Comment . Sodium 141 Potassium 3.7 Chloride 104 Carbon Dioxide 27.4 Anion Gap 10 BUN 9 Creatinine 0.70 Estimated GFR 83 L Random Glucose 98 Calcium 8.8 Total Creatine Kinase 44 Troponin I Less than 0.02 L Less than 0.02 L 07/06/18 20:00 CBC w Diff WBC RBC Hgb Hct MCV MCH MCHC RDW Plt Count MPV Neut % (Auto) Lymph % (Auto) Anson % (Auto) Eos % (Auto) Baso % (Auto) Neut # (Auto) Lymph # (Auto) Anson # (Auto) Eos # (Auto) Baso # (Auto) WBC Differential Differential Comment Sodium Potassium Chloride Carbon Dioxide Anion Gap BUN Creatinine Estimated GFR Random Glucose Calcium Total Creatine Kinase 43 Troponin I 0.02 - Imaging Impressions Chest X-Ray 07/06/18 12:43 CONCLUSION: 1. No acute abnormality or significant interval change. Myocardial Perfusion Scan Nuc Med 07/07/18 00:00 CONCLUSION: 1. Left ventricle perfusion is within normal limits. No fixed or reversible perfusion defect is identified. 2. Normal left ventricle wall motion and ejection fraction. Assessment and Plan - Assessment (1) Chest pain Code(s): R07.9 - Chest pain, unspecified Status: Acute (2) Hypertension Code(s): I10 - Essential (primary) hypertension Status: Acute - Plan This is a 68-year-old patient with: Chest pain. Resolved. -Patient has been admitted to the observation unit for chest pain. -Serial EKGs and serial troponins have been ordered for ruling out ACS purposes. Troponins flat. -EKG reviewed, no ST changes to indicate any ischemia. There is some T-wave inversion. Controlled heart rate. Chest pain has resolved. -Patient was given aspirin, nitro and morphine in the ED. -Patient continued on cardiac telemetry, no arrhythmias overnight. -CBC and BMP reviewed and essentially unremarkable. Chest x-ray with no acute abnormality. -Patient underwent a cardiac myocardial perfusion scan to further rule out any ischemia, EF adequate with no ischemia. -Patient does have a significant family history with her father having an SC at the age of 4343 years old, tobacco abuse and noncompliance. -Patient will be discharged home to follow-up with PCP. Hypertension, chronic uncontrolled -Blood pressure in the 220s systolic on presentation. Has improved overnight. -Will continue home medications including lisinopril. Will add hydrochlorothiazide. Doing well on regimen. Scription written. -Clonidine as needed. She has this at home as well. -PCP to manage. -Lifestyle modifications as well as avoiding high sodium foods encouraged. Chronic back pain: Will continue home medications. DVT prophylaxis: SCDs. Ambulation. Discharge home. Ambulation and activity as tolerated. Heart healthy diet. Prescriptions as prescribed on discharge plan. Follow-up PCP. (1) Chest pain Qualifiers: Chest pain type: unspecified Qualified Code(s): R07.9 - Chest pain, unspecified
[2018-07-07 13:24] VITALS: BP 169/78; PULSE 66; RESP 19
--- NOTE | 2018-07-07 14:29 | TR ---
Date Performed: 07/07/2018 Time Performed: 10:59:52 DOCTOR: Delfino Grissom DRUG LIST: CLINICAL HISTORY: CHEST PAIN REASON FOR TEST: Chest pain REASON FOR ENDING: OBSERVATION: CONCLUSION: COMMENTS: Lexiscan stress test was performed under standard four minute protocol. Radionuclide was injected one minute prior to ending the test. No electrocardiographic abormalities were present t o suggest ischemia. Nuclear imaging and interpretation are pending.
== END 2018-07-07 14:52 | disposition home or self-care (01) ==
LOC: PHED 12:15 → PH3 12:15 → PHEDA 12:15 → PH3 16:40
PROVIDERS: ADMIT Internal Medicine; ATTEND Internal Medicine